=== PATIENT | female | born 1985 | race African-American/Black ===

== ENCOUNTER 2016-09-16 14:56 | Emergency (ER) | payer SELFPAY ==
[~2016-09-16] VITALS: Ht 170.2 cm; Wt 72.6 kg
[2016-09-16 17:01] VITALS: BP 157/75
[2016-09-16] MEDS ORDERED: HYDROCODONE/APAP 5/325MG TABLET. PO ONE (17:15)
[2016-09-16 17:20] LABS: NEG OBC UR NEG; POS OBC UR POS
[2016-09-16 17:21] LABS: BILIRUBIN,URINE NEGATIVE (NEG); GLUCOSE,URINE NEGATIVE (NEG); NITRITE,URINE NEGATIVE (NEG); PH,URINE 5.5; PROTEIN,URINE 100 mg/dL (NEG-TRACE); UROBILINOGEN,URINE 0.2 mg/dL (0.2 mg/dL)
[2016-09-16 17:26] LABS: BASO % 0 % (0-3); EOS % 0 % (0-3); HEMATOCRIT 35.2 % (36.0-47.0); HEMOGLOBIN 11.6 g/dL (12.0-15.5); LYMPH # 1.1 x10^3/uL (1.0-4.8); LYMPH % 13 % (24-48); MEAN CORPUSCULAR HEMOGLOBIN 28 pg (25-35); MEAN CORPUSCULAR HGB CONC 33 g/dL (31-37); MEAN CORPUSCULAR VOLUME 85 fL (79-100); MONO % 3 % (0-9); NEUT % 84 % (31-73); PLATELET COUNT 295 x10^3/uL (140-400); RED BLOOD COUNT 4.15 x10^6/uL (3.50-5.40); WHITE BLOOD COUNT 8.8 x10^3/uL (4.0-11.0)
[2016-09-16 17:28] LABS: BACTERIA,URINE MODERATE /HPF (0-FEW); SQUAMOUS EPITHELIAL CELL,UR MANY /LPF
[2016-09-16 17:37] LABS: CALCIUM 8.8 mg/dL (8.5-10.1); CREATININE 0.8 mg/dL (0.6-1.0); GFR 101.2; POTASSIUM 3.7 mmol/L (3.5-5.1)
[2016-09-16 17:42] LABS: ALBUMIN 3.7 g/dL (3.4-5.0); DIRECT BILIRUBIN 0.2 mg/dL (0.0-0.2); TOTAL BILIRUBIN 0.8 mg/dL (0.2-1.0); TOTAL PROTEIN 7.8 g/dL (6.4-8.2)
--- NOTE | 2016-09-16 18:27 | RAD ---
PROCEDURE First trimester OB ultrasound. HISTORY Vaginal bleeding. TECHNIQUE Transabdominal imaging was performed for initial evaluation of the pelvis. Endovaginal imaging was performed for optimal characterization of the endometrium and to increase sensitivity for detection of intrauterine . COMPARISON None this . FINDINGS Transabdominal imaging: Uterus measures 8.5 centimeters in length. No intrauterine is identified. The right ovary measures 6.4 x 3.6 x 4.0 centimeters and demonstrates dominant corpus luteum cyst measuring 4.0 centimeters. Left ovary measures 4.4 x 2.1 x 2.8 centimeters and demonstrates a few follicles. Both ovaries demonstrate normal vascular flow upon Doppler interrogation and are without evidence of torsion. No adnexal masses are seen. Endovaginal imaging: Uterus measures 9.3 centimeters in length. Endometrial thickness is 3 millimeters, within normal limits. Several nabothian cysts are seen. No intrauterine is identified. Right ovary measures 4.9 x 4.3 x 4.3 centimeters and demonstrates 4.4 centimeter corpus luteum cyst. Left ovary measures 3.5 x 3.2 x 3.8 centimeters and demonstrates a few physiologic follicles. Both ovaries are without evidence of torsion. No adnexal masses are seen. IMPRESSION Intrauterine is identified. No adnexal masses are seen. Most likely etiology is exceedingly early intrauterine . Ectopic is not excluded, however. Serial beta HCG levels and pelvic ultrasound could be performed as clinically indicated. Electronically signed by: Ventura Marcelino MD (Sep 16, 2016 18:26:03)
[2016-09-16] MEDS ORDERED: CEPH-264 PO (19:09)
--- NOTE | 2016-09-16 19:10 | PHYS DOC ---
Past Medical History Past Medical History: Ectopic Additional Past Medical Histor: Ectopic . Past Surgical History: Other Additional Past Surgical Histo: L)tube removed post Ectopic. Alcohol Use: None Drug Use: None Adult General Chief Complaint Chief Complaint: ABDOMINAL PAIN HPI HPI 30-year-old female presenting to the emergency department with suprapubic abdominal pain she describes it as cramping nonradiating sharp intermittent and about 6 out of 10. She has also had vaginal bleeding. This started today. Otherwise she denies chest pain or shortness of breath. She does have a history of ectopic in the past. Review of Systems Review of Systems ROS negative for chest pain shortness of breath nausea vomiting. Positive for abdominal pain and vaginal bleeding. All other review of systems is negative unless otherwise noted in history of present illness. Current Medications Current Medications Current Medications Medications (Trade) Dose Ordered Sig/Cristy Start Time Stop Time Status Last Admin Dose Admin Acetaminophen/ Hydrocodone Bitart (Lortab 5/325) 2 tab 1X ONCE 09/16/16 17:15 09/16/16 17:16 DC 09/16/16 18:22 2 TAB Allergies Allergies Allergies Coded Allergies Type Severity Reaction Last Updated Verified No Known Drug Allergies 11/24/15 No Physical Exam Physical Exam Constitutional: Well developed, well nourished, no acute distress, non-toxic appearance. During my initial examination the patient's pain is mild and getting better. HENT: Normocephalic, atraumatic, bilateral external ears normal, oropharynx moist, no oral exudates, nose normal. [] Eyes: PERRLA, EOMI, conjunctiva normal, no discharge. Neck: Normal range of motion, no tenderness, supple, no stridor. [] Cardiovascular:Heart rate regular rhythm, no murmur Lungs & Thorax: Bilateral breath sounds clear to auscultation [] Abdomen: Soft nontender abdomen without rebound tenderness or guarding present. Negative McBurneys point. Negative Trejo sign. No ecchymosis present. Skin: Warm, dry, no erythema, no rash. Back: No tenderness, no CVA tenderness. [] Extremities: No tenderness, no cyanosis, no clubbing, ROM intact, no edema. [] Neurologic: Alert and oriented X 3, normal motor function, normal sensory function, no focal deficits noted. Psychologic: Affect normal, judgement normal, mood normal. [] Current Patient Data Vital Signs Vital Signs Date Time Temp Pulse Resp B/P Pulse Ox O2 Delivery O2 Flow Rate FiO2 09/16/16 18:00 84 18 100 Room Air 09/16/16 17:01 98.1 157/75 98.1 Lab Values Laboratory Tests Test 09/16/16 16:55 09/16/16 17:22 Urine Collection Type Unknown Urine Color Red Urine Clarity Turbid Urine pH 5.5 Urine Specific [place] >=1.030 Urine Protein 100mg/dL (NEG-TRACE) Urine Glucose (UA) Negativemg/dL (NEG) Urine Ketones (Stick) >=80mg/dL (NEG) Urine Blood Large (NEG) Urine Nitrite Negative (NEG) Urine Bilirubin Negative (NEG) Urine Urobilinogen Dipstick 0.2mg/dL (0.2 mg/dL) Urine Leukocyte Esterase Small (NEG) Urine RBC 6-10/HPF (0-2) Urine WBC 5-10/HPF (0-4) Urine Squamous Epithelial Cells Many/LPF Urine Amorphous Sediment Present/HPF Urine Bacteria Moderate/HPF (0-FEW) Urine Mucus Marked/LPF Urine Test Positive (NEG) White Blood Count 8.8x10^3/uL (4.0-11.0) Red Blood Count 4.15x10^6/uL (3.50-5.40) Hemoglobin 11.6g/dL (12.0-15.5) L Hematocrit 35.2% (36.0-47.0) L Mean Corpuscular Volume 85fL (79-100) Mean Corpuscular Hemoglobin 28pg (25-35) Mean Corpuscular Hemoglobin Concent 33g/dL (31-37) Red Cell Distribution Width 14.0% (11.5-14.5) Platelet Count 295x10^3/uL (140-400) Neutrophils (%) (Auto) 84% (31-73) H Lymphocytes (%) (Auto) 13% (24-48) L Monocytes (%) (Auto) 3% (0-9) Eosinophils (%) (Auto) 0% (0-3) Basophils (%) (Auto) 0% (0-3) Neutrophils # (Auto) 7.3x10^3uL (1.8-7.7) Lymphocytes # (Auto) 1.1x10^3/uL (1.0-4.8) Monocytes # (Auto) 0.3x10^3/uL (0.0-1.1) Eosinophils # (Auto) 0.0x10^3/uL (0.0-0.7) Basophils # (Auto) 0.0x10^3/uL (0.0-0.2) Maternal Serum HCG Beta Subunit 796mIU/mL (0-6) H Sodium Level 136mmol/L (136-145) Potassium Level 3.7mmol/L (3.5-5.1) Chloride Level 103mmol/L (98-107) Carbon Dioxide Level 21mmol/L (21-32) Anion Gap 12 (6-14) Blood Urea Nitrogen 12mg/dL (7-20) Creatinine 0.8mg/dL (0.6-1.0) Estimated GFR (Cockcroft-Gault) 101.2 Glucose Level 95mg/dL (70-99) Calcium Level 8.8mg/dL (8.5-10.1) Total Bilirubin 0.8mg/dL (0.2-1.0) Direct Bilirubin 0.2mg/dL (0.0-0.2) Aspartate Amino Transferase (AST) 19U/L (15-37) Alanine Aminotransferase (ALT) 19U/L (14-59) Alkaline Phosphatase 60U/L (46-116) Total Protein 7.8g/dL (6.4-8.2) Albumin 3.7g/dL (3.4-5.0) Lipase 86U/L (73-393) Laboratory Tests 09/16/16 17:22 Laboratory Tests 09/16/16 17:22 EKG EKG [] Radiology/Procedures Radiology/Procedures [facility] [address] [place] [address] IMAGING REPORT Signed PATIENT: NANCY JEFF ACCOUNT: [id number] : 1985 LOCATION: ER AGE: 30 SEX: F EXAM STATUS: REG ER ORD. PHYSICIAN: INGRIS HAYDEN MD REASON: PREG WITH VAGINAL BLEEDING PROCEDURE: PREG 1ST TRIMESTER PROCEDURE First trimester OB ultrasound. HISTORY Vaginal bleeding. TECHNIQUE Transabdominal imaging was performed for initial evaluation of the pelvis. Endovaginal imaging was performed for optimal characterization of the endometrium and to increase sensitivity for detection of intrauterine . COMPARISON None this . FINDINGS Transabdominal imaging: Uterus measures 8.5 centimeters in length. No intrauterine is identified. The right ovary measures 6.4 x 3.6 x 4.0 centimeters and demonstrates dominant corpus luteum cyst measuring 4.0 centimeters. Left ovary measures 4.4 x 2.1 x 2.8 centimeters and demonstrates a few follicles. Both ovaries demonstrate normal vascular flow upon Doppler interrogation and are without evidence of torsion. No adnexal masses are seen. Endovaginal imaging: Uterus measures 9.3 centimeters in length. Endometrial thickness is 3 millimeters, within normal limits. Several nabothian cysts are seen. No intrauterine is identified. Right ovary measures 4.9 x 4.3 x 4.3 centimeters and demonstrates 4.4 centimeter corpus luteum cyst. Left ovary measures 3.5 x 3.2 x 3.8 centimeters and demonstrates a few physiologic follicles. Both ovaries are without evidence of torsion. No adnexal masses are seen. IMPRESSION Intrauterine is identified. No adnexal masses are seen. Most likely etiology is exceedingly early intrauterine . Ectopic is not excluded, however. Serial beta HCG levels and pelvic ultrasound could be performed as clinically indicated. Electronically signed by: Ventura Wagoner MD (Sep 16, 2016 18:26:03) DICTATED and SIGNED BY: VENTURA WAGONER MD DATE: 09/16/16 1826 CC: INGRIS HAYDEN MD; NO PCP ~ [] Course & Med Decision Making Course & Med Decision Making Pertinent Labs and Imaging studies reviewed. (See chart for details) [] 30-year-old female presenting to the emergency department with abdominal pain and vaginal bleeding. Positive test in the emergency department. On examination the patient's vital signs showed mild hypertension otherwise unremarkable. Physical exam showed nontender abdomen. The patient's pain improved during my initial history and physical. Blood work sent ultrasound ordered. Blood work showed normal CBC with a mild anemia. Urinalysis showed dehydration with mild ketones with bacteria in the urine. Chemistry panel unremarkable. Beta hCG level was 796. Rh+. Ultrasound was unable to rule out ectopic . The patient was reevaluated. Her abdomen continued to be soft and nontender. She reported her pain improving after medications given. She was subsequently discharged home to follow-up with obstetrics in 3 days for serial hCG monitoring and repeat ultrasound per OB discretion. If she was unable to get into the obstetrics office she was to return to the emergency department 3 days for repeat hCG. Dragon Disclaimer Dragon Disclaimer This electronic medical record was generated, in whole or in part, using a voice recognition dictation system. Departure Departure Impression: Primary Impression: Vaginal bleeding in Additional Impression: Asymptomatic bacteriuria during Disposition: HOME, SELF-CARE Admitting Physician: Other Condition: STABLE Referrals: NO PCP (PCP) SUZANNE DUBON MD Patient Instructions: ABCs of , Vaginal Bleeding During , First Trimester Additional Instructions: Thank you for allowing us to participate in your care today. Followup with Dr. Dubon in 3 days for repeat testing. If you do not have a primary care provider you can ask for a list of our primary care providers. Return to the emergency department you have any new or concerning findings. This should be evaluated by the primary care physician and any necessary consulting services for continued management within a few days after discharge. Return to emergency room if you have any new or concerning symptoms including but not limited to fever, chills, nausea, vomiting, intractable pain, any new rashes, chest pain, shortness of air, uncontrolled bleeding, difficulty breathing, and/or vision loss. You may have been prescribed medication that can change in your level of thinking and ability to operate machinery. These medications include hydrocodone and Ativan. Also, Benadryl has been known to do this as well. Be sure to check with your pharmacist and ask if the medications you've prescribed can affect your level of consciousness. I recommend not operating heavy machinery or driving while on medication such as these. Scripts Cephalexin (Keflex)500 Mg Capsule1 Cap PO BID #14 CAP Prov:INGRIS HAYDEN MD 09/16/16 Problem Qualifiers INGRIS HAYDEN MD Sep 16, 2016 19:10
--- NOTE | 2016-09-19 16:26 | VNOTE ---
CALL BACK NOTE CALL BACK Microbiology 09/16/16 Urine Culture - Final, Complete 09/16/16 Urine Culture Result 1 (MIGUEL) - Final, Complete 09/16/16 Urine Culture Result 2 (MIGUEL) - Final, Complete Patient was notified in regards of Group B strep she has an appointment with Dr Dubon tomorrow in which she will provide him with this information. HONORIO CHOU NP Sep 19, 2016 16:25
== END 2016-09-16 19:37 | disposition home or self-care (01) ==
LOC: ER 14:56
DX: Z33.1 Pregnant state, incidental (principal); N93.9 Abnormal uterine and vaginal bleeding, unspecified; R82.71 Bacteriuria; R10.9 Unspecified abdominal pain; I10 Essential (primary) hypertension; E86.0 Dehydration; D64.9 Anemia, unspecified
CPT/HCPCS: 36415; 76801; 80048; 80076; 81001; 81025; 83690; 84702; 85027; 86901; 87086; 99285-25

== ENCOUNTER 2019-08-17 12:56 | Emergency (ER) | payer OTHER ==
[~2019-08-17] VITALS: Ht 172.7 cm; Wt 72.6 kg
[~2019-08-17 12:56] MED LIST: CEPH-264 PO
[2019-08-17] MEDS ORDERED: ONDANSETRON ODT 4 MG TAB.RAPDIS. PO STA (14:06)
[2019-08-17] MEDS ORDERED: DICYCLOMINE HCL 10 MG CAPSULE PO STA (14:06)
[2019-08-17] MEDS ORDERED: ONDA4TAB12 PO (14:14)
[2019-08-17] MEDS ORDERED: DICY10CA3 PO (14:14)
--- NOTE | 2019-08-17 14:14 | PHYS DOC ---
Past Medical History Past Medical History: Ectopic Additional Past Medical Histor: Ectopic . Past Surgical History: Other Additional Past Surgical Histo: L)tube removed post Ectopic. Alcohol Use: None Drug Use: None Adult General Chief Complaint Chief Complaint: DIARRHEA HPI HPI Patient is a 33 year old year female who presents with abdominal cramping, and diarrhea this been ongoing since this morning. The patient rates her pain as 8 out of 10 in severity. States that she feels mildly nauseous as well. Denies fever, denies any other complaints. Review of Systems Review of Systems Constitutional: Denies fever or chills [] Eyes: Denies change in visual acuity, redness, or eye pain [] HENT: Denies nasal congestion or sore throat [] Respiratory: Denies cough or shortness of breath [] Cardiovascular: No additional information not addressed in HPI [] GI: Reports abdominal cramping, nausea, and diarrhea [] : Denies dysuria or hematuria [] Musculoskeletal: Denies back pain or joint pain [] Integument: Denies rash or skin lesions [] Neurologic: Denies headache, focal weakness or sensory changes [] Endocrine: Denies polyuria or polydipsia [] Complete systems were reviewed and found to be within normal limits, except as documented in this note. Current Medications Current Medications Current Medications Medications (Trade) Dose Ordered Sig/[facility] Start Time Stop Time Status Last Admin Dose Admin Dicyclomine HCl (Bentyl) 10 mg 1X STAT 08/17/19 14:06 08/17/19 14:08 DC 08/17/19 14:11 10 MG Ondansetron HCl (Zofran Odt) 4 mg 1X STAT 08/17/19 14:06 08/17/19 14:08 DC 08/17/19 14:11 4 MG Allergies Allergies Allergies Coded Allergies Type Severity Reaction Last Updated Verified No Known Drug Allergies 11/24/15 No Physical Exam Physical Exam Constitutional: Well developed, well nourished, no acute distress, non-toxic appearance. [] HENT: Normocephalic, atraumatic, bilateral external ears normal, oropharynx moist, no oral exudates, nose normal. [] Eyes: PERRLA, EOMI, conjunctiva normal, no discharge. [] Neck: Normal range of motion, no tenderness, supple, no stridor. [] Cardiovascular:Heart rate regular rhythm, no murmur [] Lungs & Thorax: Bilateral breath sounds clear to auscultation [] Abdomen: Bowel sounds normal, soft, diffuse tenderness localized to the LLQ, no masses, no pulsatile masses. [] Skin: Warm, dry, no erythema, no rash. [] Neurologic: Alert and oriented X 3, normal motor function, normal sensory function, no focal deficits noted. [] Psychologic: Affect normal, judgement normal, mood normal. [] Current Patient Data Vital Signs Vital Signs Date Time Temp Pulse Resp B/P (MAP) Pulse Ox O2 Delivery O2 Flow Rate FiO2 08/17/19 13:10 98.3 70 16 147/69 (95) 100 Room Air 98.3 Lab Values Laboratory Tests Test 08/17/19 14:19 08/17/19 15:20 Urine Collection Type Unknown Urine Color Yellow Urine Clarity Turbid Urine pH 7.0 Urine Specific [place] 1.025 Urine Protein Negative mg/dL (NEG-TRACE) Urine Glucose (UA) Negative mg/dL (NEG) Urine Ketones (Stick) Negative mg/dL (NEG) Urine Blood Small (NEG) Urine Nitrite Negative (NEG) Urine Bilirubin Negative (NEG) Urine Urobilinogen Dipstick 0.2 mg/dL (0.2 mg/dL) Urine Leukocyte Esterase Negative (NEG) Urine RBC 0 /HPF (0-2) Urine WBC Occ /HPF (0-4) Urine Squamous Epithelial Cells Many /LPF Urine Bacteria Few /HPF (0-FEW) Urine Mucus Marked /LPF POC Urine HCG, Qualitative Hcg positive (Negative) White Blood Count 4.9 x10^3/uL (4.0-11.0) Red Blood Count 4.04 x10^6/uL (3.50-5.40) Hemoglobin 11.4 g/dL (12.0-15.5) L Hematocrit 35.0 % (36.0-47.0) L Mean Corpuscular Volume 87 fL (79-100) Mean Corpuscular Hemoglobin 28 pg (25-35) Mean Corpuscular Hemoglobin Concent 33 g/dL (31-37) Red Cell Distribution Width 13.9 % (11.5-14.5) Platelet Count 287 x10^3/uL (140-400) Neutrophils (%) (Auto) 48 % (31-73) Lymphocytes (%) (Auto) 45 % (24-48) Monocytes (%) (Auto) 5 % (0-9) Eosinophils (%) (Auto) 1 % (0-3) Basophils (%) (Auto) 1 % (0-3) Neutrophils # (Auto) 2.4 x10^3/uL (1.8-7.7) Lymphocytes # (Auto) 2.2 x10^3/uL (1.0-4.8) Monocytes # (Auto) 0.3 x10^3/uL (0.0-1.1) Eosinophils # (Auto) 0.0 x10^3/uL (0.0-0.7) Basophils # (Auto) 0.0 x10^3/uL (0.0-0.2) Maternal Serum HCG Beta Subunit 487 mIU/mL (0-5) H Sodium Level 139 mmol/L (136-145) Potassium Level 3.7 mmol/L (3.5-5.1) Chloride Level 103 mmol/L (98-107) Carbon Dioxide Level 27 mmol/L (21-32) Anion Gap 9 (6-14) Blood Urea Nitrogen 12 mg/dL (7-20) Creatinine 0.7 mg/dL (0.6-1.0) Estimated GFR (Cockcroft-Gault) 115.9 BUN/Creatinine Ratio 17 (6-20) Glucose Level 94 mg/dL (70-99) Calcium Level 8.4 mg/dL (8.5-10.1) L Total Bilirubin 0.4 mg/dL (0.2-1.0) Aspartate Amino Transferase (AST) 15 U/L (15-37) Alanine Aminotransferase (ALT) 15 U/L (14-59) Alkaline Phosphatase 61 U/L (46-116) Total Protein 7.4 g/dL (6.4-8.2) Albumin 3.5 g/dL (3.4-5.0) Albumin/Globulin Ratio 0.9 (1.0-1.7) L Laboratory Tests 08/17/19 15:20 Laboratory Tests 08/17/19 15:20 EKG EKG [] Radiology/Procedures Radiology/Procedures [][facility] [address] [place] [address] IMAGING REPORT Signed PATIENT: NANCY JEFF MACCOUNT: [id number] : 1985 LOCATION: ER AGE: 33 SEX: F EXAM STATUS: REG ER ORD. PHYSICIAN: DIEGO BENZ APRN REASON: left lower abd pain, + preg PROCEDURE: OB <14 WKS W/TV Examination: Obstetric ultrasound less than 14 weeks HISTORY: History of left lower quadrant abdominal pain COMPARISON: 09/16/2016 FINDINGS: The uterus measures 9.7 x 5.1 x 4.3 cm. Small amount of simple fluid identified in the cul-de-sac.The right ovary measures 2.8 x 2.2 x 1.5 cm. The left ovary measures 2.6 x 2.1 x 1.5 cm. Blood flow identified in the right and left ovaries. Small amount of fluid identified in the endometrium. Tiny cystic structures identified in the cervix. There is a somewhat hyperechoic structure identified within the uterus in the left ovary without significant vascular flow within. IMPRESSION: 1. No evidence of intrauterine gestational sac identified. Differential includes very early , failed first trimester or ectopic .. There is a hyperechogenicity between the uterus and the left ovary without vascular flow within nonspecific could be somewhat hyperechoic fallopian tube or nondistended bowel. Correlate clinically. Close interval follow-up examination and follow-up beta-hCG levels is recommended. 2. Cystic structures identified in the cervix probably nabothian cysts. 3. Minimal fluid identified in the endometrium could be blood or endometrial fluid. Electronically signed by: Marcus Tee MD (08/17/2019 3:33 PM) [facility] DICTATED and SIGNED BY: MARCUS TEE MD DATE: 08/17/19 1533 Course & Med Decision Making Course & Med Decision Making Pertinent Labs and Imaging studies reviewed. (See chart for details) Will give patient Bentyl and Zofran in ER. Will prescribe to go home. Discussed with patient that this is likely viral in nature. Discussed that if she is unable to keep fluids down, or the abdominal cramping does not improve to return to ER. Patient is agreeable to this plan. HCG is positive. Will get ultrasound. After discussing with patient. The patient states that she did have some vaginal bleeding this morning. Ultrasound show possible ectopic . Will page Dr. Salter to discuss case ([id number]). HCG is 487. Labs are otherwise unremarkable. Discussed with Dr. Salter who will see on Monday. Patrice Disclaimer Patrice Disclaimer This electronic medical record was generated, in whole or in part, using a voice recognition dictation system. Departure Departure Impression: Primary Impression: Diarrhea Additional Impressions: Vaginal bleeding in Abdominal pain during Hx of ectopic Disposition: HOME, SELF-CARE Condition: STABLE Referrals: NO PCP (PCP) JESUS ALBERTO SALTER Jr, MD Patient Instructions: Viral Gastroenteritis Additional Instructions: Thank you for visiting [facility]. We appreciate you trusting us with your care. If any additional problems come up don't hesitate to return to visit us. Please follow up with your primary care provider so they can plan additional care if needed and know about the problem that you had. If symptoms worsen come back to the Emergency Department. Any concerning symptoms that start such as chest pain, shortness of air, weakness or numbness on one side of the body, running high fevers or any other concerning symptoms return to the ER. Please fill your medications at any pharmacy and follow the prescription instructions. Please return to the emergency department if you are unable to keep fluids down or your pain gets worse or you start having large amounts of vaginal bleeding. Please follow up with GREIGE MENDER on Monday for redraw of HCG. Scripts Ondansetron (ONDANSETRON ODT) 4 Mg Tab.rapdis 1 TAB PO PRN Q6-8HRS PRN for NAUSEA, #16 TAB Prov: DIEGO BENZ APRN 08/17/19 Dicyclomine Hcl (DICYCLOMINE HCL) 10 Mg Capsule 1 CAP PO PRN Q6HRS PRN for PAIN, #20 CAP 0 Refills Prov: DIEGO BENZ APRN 08/17/19 Problem Qualifiers Primary Impression: Diarrhea Diarrhea type: unspecified type Qualified Codes: R19.7 - Diarrhea, unspecified Additional Impressions: Abdominal pain during Trimester: unspecified trimester Qualified Codes: O26.899 - Other specified related conditions, unspecified trimester; R10.9 - Unspecified abdominal pain DIEGO BENZ APRN Aug 17, 2019 14:14
[2019-08-17 15:32] LABS: BASO % 1 % (0-3); EOS % 1 % (0-3); HEMOGLOBIN 11.4 g/dL (12.0-15.5); LYMPH # 2.2 x10^3/uL (1.0-4.8); LYMPH % 45 % (24-48); MEAN CORPUSCULAR HEMOGLOBIN 28 pg (25-35); MEAN CORPUSCULAR HGB CONC 33 g/dL (31-37); MEAN CORPUSCULAR VOLUME 87 fL (79-100); MONO # 0.3 x10^3/uL (0.0-1.1); MONO % 5 % (0-9); NEUT # 2.4 x10^3/uL (1.8-7.7); NEUT % 48 % (31-73); PLATELET COUNT 287 x10^3/uL (140-400); RED BLOOD COUNT 4.04 x10^6/uL (3.50-5.40); RED CELL DISTRIBUTION WIDTH 13.9 % (11.5-14.5); WHITE BLOOD COUNT 4.9 x10^3/uL (4.0-11.0)
--- NOTE | 2019-08-17 15:36 | RAD ---
Examination: Obstetric ultrasound less than 14 weeks HISTORY: History of left lower quadrant abdominal pain COMPARISON: 09/16/2016 FINDINGS: The uterus measures 9.7 x 5.1 x 4.3 cm. Small amount of simple fluid identified in the cul-de-sac.The right ovary measures 2.8 x 2.2 x 1.5 cm. The left ovary measures 2.6 x 2.1 x 1.5 cm. Blood flow identified in the right and left ovaries. Small amount of fluid identified in the endometrium. Tiny cystic structures identified in the cervix. There is a somewhat hyperechoic structure identified within the uterus in the left ovary without significant vascular flow within. IMPRESSION: 1. No evidence of intrauterine gestational sac identified. Differential includes very early , failed first trimester or ectopic .. There is a hyperechogenicity between the uterus and the left ovary without vascular flow within nonspecific could be somewhat hyperechoic fallopian tube or nondistended bowel. Correlate clinically. Close interval follow-up examination and follow-up beta-hCG levels is recommended. 2. Cystic structures identified in the cervix probably nabothian cysts. 3. Minimal fluid identified in the endometrium could be blood or endometrial fluid. Electronically signed by: Marcus Tee MD (08/17/2019 3:33 PM) [facility]
[2019-08-17 15:43] LABS: CALCIUM 8.4 mg/dL (8.5-10.1); CREATININE 0.7 mg/dL (0.6-1.0); GFR 115.9; POTASSIUM 3.7 mmol/L (3.5-5.1)
[2019-08-17 15:49] LABS: ALBUMIN 3.5 g/dL (3.4-5.0); ALBUMIN/GLOBULIN RATIO 0.9 (1.0-1.7); TOTAL BILIRUBIN 0.4 mg/dL (0.2-1.0); TOTAL PROTEIN 7.4 g/dL (6.4-8.2)
[2019-08-17 16:10] LABS: BILIRUBIN,URINE NEGATIVE (NEG); CLARITY,URINE TURBID; COLOR,URINE YELLOW; NITRITE,URINE NEGATIVE (NEG); PROTEIN,URINE NEGATIVE (NEG-TRACE); UROBILINOGEN,URINE 0.2 mg/dL (0.2 mg/dL)
[2019-08-17 16:22] LABS: RBC,URINE 0 /HPF (0-2); SQUAMOUS EPITHELIAL CELL,UR MANY /LPF
[2019-08-17 16:23] LABS: BACTERIA,URINE FEW /HPF (0-FEW); WBC,URINE OCC /HPF (0-4)
[2019-08-17 17:01] VITALS: BP 143/78
== END 2019-08-17 17:04 | disposition home or self-care (01) ==
LOC: ER 12:56
DX: O46.91 Antepartum hemorrhage, unspecified, first trimester (principal); R10.32 Left lower quadrant pain; R10.84 Generalized abdominal pain; R19.7 Diarrhea, unspecified; Z3A.00 Weeks of gestation of pregnancy not specified
CPT/HCPCS: 36415; 76801; 76817; 80053; 81001; 81025; 84702; 85025; 99285; Q0162

== ENCOUNTER 2020-08-11 13:54 | Emergency (ER) | payer MEDICAID, OTHER ==
[~2020-08-11] VITALS: Ht 172.7 cm; Wt 72.7 kg
[~2020-08-11 13:54] MED LIST changes: +DICY10CA3 PO; +ONDA4TAB12 PO
[2020-08-11] MEDS ORDERED: LIDOCAINE 1%/EPI 1:100,000 20 ML VIAL. SQ ONE (14:45)
--- NOTE | 2020-08-11 15:42 | ED.ADGEN ---
Past Medical History Past Medical History: Ectopic Additional Past Medical Histor: Ectopic . Past Surgical History: Other Additional Past Surgical Histo: L)tube removed post Ectopic. Smoking Status: Never Smoker Alcohol Use: None Drug Use: None General Adult EDM: Chief Complaint: LACERATION/AVULSION HPI: HPI: Patient is a 34 year old AA female who presents emergency department with complaints of a laceration above her right eyebrow. Patient states she accidentally slipped on some water and hit her head on a a corner of a wall at home. She denies any loss of consciousness, neck pain, nausea, vomiting, vision changes, headache. Patient states she is unsure when her last tetanus immunization was. She currently rates her pain a 5 out of 10 on pain scale, she denies any alleviating or exacerbating factors. Review of Systems: Review of Systems: Complete ROS is negative unless otherwise noted in HPI. Current Medications: Current Medications Medications (Trade) Dose Ordered Sig/Cristy Start Time Stop Time Status Last Admin Dose Admin Diphtheria/ Tetanus/Acell Pertussis (ADACEL TDap SYRINGE) 0.5 ml ONCE ONCE 08/11/20 15:45 08/11/20 15:46 DC 08/11/20 15:49 0.5 ML Lidocaine/ Epinephrine (LIDOCAINE 1%-EPI 1:100,000 Multi-Dose) 20 ml 1X ONCE 08/11/20 14:45 08/11/20 14:46 DC 08/11/20 14:46 20 ML Allergies: Allergies: Allergies Coded Allergies Type Severity Reaction Last Updated Verified No Known Drug Allergies 11/24/15 No Physical Exam: PE: See Above Constitutional: Well developed, well nourished, no acute distress, non-toxic appearance. [] HENT: Normocephalic, atraumatic, bilateral external ears normal, nose normal. [] Eyes: PERRLA, EOMI, conjunctiva normal, no discharge. [] Neck: Normal range of motion, no stridor. [] Cardiovascular:Heart rate regular rhythm Lungs & Thorax: Respirations even and unlabored, no retractions, no respiratory distress Skin: Warm, dry, no erythema, no rash; 2 cm vertical laceration to the lateral right eyebrow, no visible foreign body, no active bleeding. [] Extremities: No cyanosis, ROM intact, no edema. [] Neurologic: Alert and oriented X 3, no focal deficits noted. [] Psychologic: Affect normal, judgement normal, mood normal. [] Current Patient Data: Vital Signs: Vital Signs Date Time Temp Pulse Resp B/P (MAP) Pulse Ox O2 Delivery O2 Flow Rate FiO2 08/11/ 15:50 98.0 66 20 119/67 (84) 100 Room Air 98.0 EKG: EKG: [] Heart Score: Risk Factors: Risk Factors: DM, Current or recent (<one month) smoker, HTN, HLP, family history of CAD, obesity. Risk Scores: Score 0 - 3: 2.5% MACE over next 6 weeks - Discharge Home Score 4 - 6: 20.3% MACE over next 6 weeks - Admit for Clinical Observation Score 7 - 10: 72.7% MACE over next 6 weeks - Early Invasive Strategies Radiology/Procedures: Radiology/Procedures: Laceration Repair by me: Anesthesia: 1% with epi lidocaine locally Location: Right eyebrow Tendon/Joint/Nerves: No injury Foreign body: None detected after copious irrigation and exploration with NS and chlorhexidine Technique: 4 Simple Interrupted Sutures with Prolene Complexity: No subcutaneous sutures/mucosal repair/edge excision Post Closure Length: 2 cm Patient's bleeding was easily controlled in the department and there is no indication of anemia. No evidence of compartment syndrome, neurologic injury, vascular injury, open joint, tendon laceration, or foreign body. Patient is appropriate for outpatient follow up. Scar minimization instructions given. [] Course & Med Decision Making: Course & Med Decision Making Pertinent Labs and Imaging studies reviewed. (See chart for details) [] Dragon Disclaimer: Dragon Disclaimer: This electronic medical record was generated, in whole or in part, using a voice recognition dictation system. Departure Departure Impression: Primary Impression: Laceration of eyebrow, right Additional Impression: Need for Tdap vaccination Disposition: 01 DC HOME SELF CARE/HOMELESS Condition: STABLE Referrals: NO PCP (PCP) Patient Instructions: Facial Laceration, [id number], VIS, Tetanus, Diphtheria (Td); Tetanus, Diphtheria, Pertussis (Tdap) - CDC Additional Instructions: Keep the area clean and dry. You may take Tylenol or ibuprofen as needed for pain. Keep the dressing that was placed today on for 24 hours then change the dressing twice a day. Follow-up with your primary care doctor, or return to the emergency room in 5-7 days to have the sutures removed, sooner if you develop signs of infection including: redness, warmth, drainage, or a fever. 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 I was available for consultation as needed during the patient's visit in the emergency department. I agree with the clinical impression, plan, and disposition. Problem Qualifiers Primary Impression: Laceration of eyebrow, right Encounter type: initial encounter Qualified Codes: S01.111A - Laceration without foreign body of right eyelid and periocular area, initial encounter HONG CRUZ APRN Aug 11, 2020 15:42 MCKENNADIEGO DO Aug 11, 2020 17:51
[2020-08-11] MEDS ORDERED: DIPH,PERTUSS(ACELL),TET VAC/PF 0.5 ML SYRINGE. VAX IM ONE (15:45)
[2020-08-11 15:50] VITALS: BP 119/67
== END 2020-08-11 15:56 | disposition home or self-care (01) ==
LOC: ER 13:54
DX: S01.111A Laceration without foreign body of right eyelid and periocular area, initial encounter (principal); W01.198A Fall on same level from slipping, tripping and stumbling with subsequent striking against other object, initial encounter; Y93.89 Activity, other specified; Y92.098 Other place in other non-institutional residence as the place of occurrence of the external cause; Y99.8 Other external cause status
CPT/HCPCS: 12011; 90471; 90715; 99283; J3490

== ENCOUNTER 2020-08-30 14:27 | Emergency (ER) | payer MEDICAID ==
[~2020-08-30] VITALS: Ht 175.3 cm; Wt 160.0 kg
[2020-08-30 15:25] VITALS: BP 144/93
--- NOTE | 2020-08-30 15:33 | ED.ADGEN ---
Past Medical History Past Medical History: Ectopic Additional Past Medical Histor: Ectopic . Past Surgical History: Other Additional Past Surgical Histo: L)tube removed post Ectopic. Smoking Status: Never Smoker Alcohol Use: None Drug Use: None General Adult EDM: Chief Complaint: SUTURE/STAPLE REMOVAL HPI: HPI: Patient is a 34 year old AA female who presents to the emergency department for suture removal. Patient was seen here on August 11, 2020 and had 4 sutures placed in her right eyebrow. She states that before that healed she fell and hit it and it started bleeding again so she waited until today to come in. Patient denies any erythema, purulent drainage, warmth, or bleeding from the at this time. She denies any recent fever. The patient currently denies any pain.625Nollid! Review of Systems: Review of Systems: Complete ROS is negative unless otherwise noted in HPI. Allergies: Allergies: Allergies Coded Allergies Type Severity Reaction Last Updated Verified No Known Drug Allergies 11/24/15 No Physical Exam: PE: See Above Constitutional: Well developed, well nourished, no acute distress, non-toxic a ppearance. [] HENT: Normocephalic, atraumatic, bilateral external ears normal, nose normal. [] Eyes: PERRLA, EOMI, conjunctiva normal, no discharge. [] Neck: Normal range of motion, no stridor. [] Cardiovascular:Heart rate regular rhythm Lungs & Thorax: Respirations even and unlabored, no retractions, no respiratory distress Skin: Warm, dry, no erythema, no rash; healed laceration noted to the right eyebrow, wound edges are well approximated, no drainage or surrounding erythema, sutures were removed by RN prior to exam. [] Extremities: No cyanosis, ROM intact, no edema. [] Neurologic: Alert and oriented X 3, no focal deficits noted. [] Psychologic: Affect normal, judgement normal, mood normal. [] Current Patient Data: Vital Signs: Vital Signs Date Time Temp Pulse Resp B/P (MAP) Pulse Ox O2 Delivery O2 Flow Rate FiO2 08/30/20 15:25 98.3 66 16 144/93 (110) 98 Room Air 98.3 EKG: EKG: [] Heart Score: Risk Factors: Risk Factors: DM, Current or recent (<one month) smoker, HTN, HLP, family history of CAD, obesity. Risk Scores: Score 0 - 3: 2.5% MACE over next 6 weeks - Discharge Home Score 4 - 6: 20.3% MACE over next 6 weeks - Admit for Clinical Observation Score 7 - 10: 72.7% MACE over next 6 weeks - Early Invasive Strategies Radiology/Procedures: Radiology/Procedures: [] Course & Med Decision Making: Course & Med Decision Making Pertinent Labs and Imaging studies reviewed. (See chart for details) [] Dragon Disclaimer: Dragon Disclaimer: This electronic medical record was generated, in whole or in part, using a voice recognition dictation system. Departure Departure Impression: Primary Impression: Encounter for removal of sutures Disposition: 01 DC HOME SELF CARE/HOMELESS Condition: STABLE Referrals: NO PCP (PCP) Patient Instructions: Suture Removal-Brief Additional Instructions: Be sure to wear sunblock over the affected area when you are in the sun, vitamin E capsules twice a day as discussed. Follow-up with your primary care doctor as needed, return to the ER if your symptoms worsen. Have a great day, thank you for choosing [facility]! HONG CRUZ APRN Aug 30, 2020 15:33
== END 2020-08-30 15:37 | disposition home or self-care (01) ==
LOC: ER 14:27
DX: S01.111D Laceration without foreign body of right eyelid and periocular area, subsequent encounter (principal); Z98.890 Other specified postprocedural states; X58.XXXD Exposure to other specified factors, subsequent encounter
CPT/HCPCS: 99282

== ENCOUNTER → 2021-11-11 | Outpatient (CLI) | payer MEDICAID ==
--- NOTE | 2021-11-11 16:25 | RAD ---
EXAM: Obstetrics sonogram. HISTORY: viability scan. TECHNIQUE: Transabdominal and transvaginal sonographic imaging of the pelvis was performed. COMPARISON: None. FINDINGS: The uterus measures 12.0 x 7.6 x 7.5 cm. There is a single intrauterine gestational sac wit h pole. The crown-rump length is 2.76 cm, corresponding with a gestational age of 9 weeks and 4 days. There is no cardiac activity. No yolk sac is seen. The right ovary is normal in si ze and demonstrate normal blood flow. There is a 1.8 cm right corpus luteum cyst. The left ovary is o bscured. No left adnexal mass or cyst is seen. IMPRESSION: 1. Single uterine fetus with an estimated gestational age patient also measurements of 9 weeks and 4 days and absent cardiac activity. This is consistent with intrauterine demise. 2. 1.8 cm right corpus luteum cyst. The left ovary is obscured. Electronically signed by: Sapna Ochoa MD (11/11/2021 4:22 PM) [id number]
== END ==
LOC: US 15:37
PROVIDERS: ATTEND Registered Nurse
DX: O36.80X0 Pregnancy with inconclusive fetal viability, not applicable or unspecified (principal); O34.81 Maternal care for other abnormalities of pelvic organs, first trimester; N83.11 Corpus luteum cyst of right ovary; Z3A.09 9 weeks gestation of pregnancy
CPT/HCPCS: 76801; 76817

== ENCOUNTER 2021-11-23 08:37 | Day surgery (SDC) | payer MEDICAID ==
[~2021-11-23] VITALS: Ht 172.7 cm; Wt 76.9 kg
[~2021-11-23 08:37] MED LIST changes: +HYDROmorphone 2 MG/ML INJ. IVP PRN; +IV RINGERS,LACTATED 1000ML 1,000 ML IV SCH; +MORPHINE SULFATE 2 MG/ML INJ. IVP PRN; +PNV1TABL78 PO; +PROCHLORPERAZINE 10 MG/2 ML VIAL. IVP PRN; +fentaNYL PF VIAL 100 MCG/2 ML VIAL IVP PRN
[2021-11-23] MEDS ORDERED: DOXYCYCLINE HYCLATE 100 MG TABLET PO ONE (08:45)
[2021-11-23 09:06] VITALS: BP 136/65
[2021-11-23 09:24] LABS: BASO # 0.1 x10^3/uL (0.0-0.2); BASO % 1 % (0-3); EOS # 0.1 x10^3/uL (0.0-0.7); EOS % 1 % (0-3); HEMATOCRIT 34.6 % (36.0-47.0); HEMOGLOBIN 10.9 g/dL (12.0-15.5); LYMPH # 1.9 x10^3/uL (1.0-4.8); LYMPH % 32 % (24-48); MEAN CORPUSCULAR HEMOGLOBIN 27 pg (25-35); MEAN CORPUSCULAR HGB CONC 32 g/dL (31-37); MEAN CORPUSCULAR VOLUME 86 fL (79-100); MONO # 0.3 x10^3/uL (0.0-1.1); MONO % 5 % (0-9); NEUT # 3.6 x10^3/uL (1.8-7.7); NEUT % 61 % (31-73); PLATELET COUNT 325 x10^3/uL (140-400); RED BLOOD COUNT 4.01 x10^6/uL (3.50-5.40); RED CELL DISTRIBUTION WIDTH 13.8 % (11.5-14.5); WHITE BLOOD COUNT 5.9 x10^3/uL (4.0-11.0)
[2021-11-23] MEDS ORDERED: FAMOTIDINE 20 MG/2 ML VIAL IVP ONE (09:30)
[2021-11-23] MEDS ORDERED: OXYTOCIN 10 UNIT/ML VIAL. ONE ×2 (09:35)
--- NOTE | 2021-11-23 10:09 | PDOC1 ---
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 The pt underwent an u/s on 11/11/21 revealing a fetus measuring 9.4wks with no heartbeat. Explained to the pt that a heartbeat was seen at 6wks. With no heartbeat seen in a fetus measuring 9wks that was definitive for a missed AB. Discussed tx options of expectant, medical and surgical management. With her other two AB she did not require a D&C. She did have an ectopic with her first . She unsure if they removed her tube (but records look like they may have taken her left tube). PMH: Denies PSH: Ectopic - left salpingectomy? Meds: PNV All: NKDA OBHx: 3 X TSVD, 2 x AB, [address] Judge: LMP 08/21/21 11yo / regular SH: no tob, no EtOH FH: HTN, DM Medications: Meds: Current Medications Medications (Trade) Dose Ordered Sig/Cristy Route PRN Reason Start Time Stop Time Status Last Admin Dose Admin Doxycycline Hyclate (Vibra-Tab) 200 mg 1X ONCE PO 11/23/21 08:45 11/23/21 08:46 DC 11/23/21 09:20 Famotidine (Pepcid Vial) 20 mg 1X ONCE IVP 11/23/21 09:30 11/23/21 09:31 DC 11/23/21 09:35 Allergies: Coded Allergies: No Known Drug Allergies (Unverified , 11/23/21) Physical Exam: Vital Signs: Vital Signs Date Time Temp Pulse Resp B/P (MAP) Pulse Ox O2 Delivery O2 Flow Rate FiO2 11/23/21 09:06 97.8 68 20 100 97.8 11/23/21 08:55 136/65 Room Air PE: GENERAL: No apparent distress. Alert and oriented. HEENT: Head normocephalic, atraumatic. NECK: Supple LUNGS: Clear to auscultation. HEART: RRR, S1, S2 present, pulses intact ABDOMEN: Soft, positive bowel sounds. EXTREMITIES: No cyanosis or edema. NEUROLOGIC: Normal speech, normal tone PSYCHIATRIC: Normal affect, normal mood. SKIN: No ulceration. Labs: Laboratory Tests Test 11/23/21 09:15 White Blood Count 5.9 x10^3/uL (4.0-11.0) Red Blood Count 4.01 x10^6/uL (3.50-5.40) Hemoglobin 10.9 g/dL (12.0-15.5) L Hematocrit 34.6 % (36.0-47.0) L Mean Corpuscular Volume 86 fL (79-100) Mean Corpuscular Hemoglobin 27 pg (25-35) Mean Corpuscular Hemoglobin Concent 32 g/dL (31-37) Red Cell Distribution Width 13.8 % (11.5-14.5) Platelet Count 325 x10^3/uL (140-400) Neutrophils (%) (Auto) 61 % (31-73) Lymphocytes (%) (Auto) 32 % (24-48) Monocytes (%) (Auto) 5 % (0-9) Eosinophils (%) (Auto) 1 % (0-3) Basophils (%) (Auto) 1 % (0-3) Neutrophils # (Auto) 3.6 x10^3/uL (1.8-7.7) Lymphocytes # (Auto) 1.9 x10^3/uL (1.0-4.8) Monocytes # (Auto) 0.3 x10^3/uL (0.0-1.1) Eosinophils # (Auto) 0.1 x10^3/uL (0.0-0.7) Basophils # (Auto) 0.1 x10^3/uL (0.0-0.2) Laboratory Tests 11/23/21 09:15 Laboratory Tests 11/23/21 09:15 Assessment & Plan: A/P 36y with 9.4wk AB 1.) Missed AB - scheduled for 11/22/21 at 0800 2.) AMA 3.) Possible cHTN 4.) H/o ectopic DIEGO FUNK MD Nov 23, 2021 10:09
[2021-11-23] MEDS ORDERED: PROPOFOL 10 MG/ML (20ML) VIAL. IV ONE (10:37)
[2021-11-23] MEDS ORDERED: ONDANSETRON PF 4 MG/2 ML VIAL. ONE (10:37)
[2021-11-23] MEDS ORDERED: DEXAMETHASONE SOD PHOS 4 MG/ML VIAL ONE (10:37)
[2021-11-23] MEDS ORDERED: LIDOCAINE 1% PF 5 ML VIAL. ONE (10:38)
[2021-11-23] MEDS ORDERED: fentaNYL PF VIAL 100 MCG/2 ML VIAL ONE ×2 (10:38→11:17)
[2021-11-23] MEDS ORDERED: ePHEDrine PF IN SALINE 50 MG/10 ML SYRINGE. IV ONE (10:44)
--- NOTE | 2021-11-23 10:54 | PDOC4 ---
OPERATIVE NOTE: PreOp Dx: 1.) 9wk AB, 2.) AMA, 3.) possible cHTN PostOp Dx: same Procedure: Suction D&C Surgeon: Drew Funk Anesthesia: LMA EBL: 700 cc Fluids: 1500 cc UOP: 30 cc Findings: POC Complications: None Pathology: POC DIEGO FUNK MD Nov 23, 2021 10:54
[2021-11-23] MEDS ORDERED: OXYC1TAB15 PO ×2 (10:59→11:02)
[2021-11-23] MEDS ORDERED: IBUP-1060 PO (11:02)
--- NOTE | 2021-11-23 11:11 | OP ---
DATE OF SURGERY: 11/23/2021 PREOPERATIVE DIAGNOSES: 1. Nine week . 2. Advanced maternal age. 3. Possible chronic hypertension. POSTOPERATIVE DIAGNOSES: 1. Nine week . 2. Advanced maternal age. 3. Possible chronic hypertension. PROCEDURE: Suction D and C. SURGEON: Ventura Aguirre MD ANESTHESIA: LMA. ESTIMATED BLOOD LOSS: 700 mL. FLUIDS: 1500 mL. URINE OUTPUT: 30 mL. FINDINGS: Products of conception. COMPLICATIONS: None. PATHOLOGY: Products of conception. DESCRIPTION OF PROCEDURE: The patient was taken to the operating room where LMA was placed without difficulty. The patient was prepped and draped in normal sterile fashion. Speculum was placed to visualize the anterior lip of the cervix. The anterior lip of cervix was then grasped with a single tooth tenaculum. The cervix was dilated to allow for 11 mm curved curette to be placed. At that point, the curette was advanced to the fundus and suction was activated. The curette was rotated until all products of conception were cleared. This occurred with 4-6 passes. At that point, sharp curetting was performed until gritty texture was felt in all 4 quadrants. Additional pass of the suction curette was then performed with minimal bleeding and tissue returned. At that point, the procedure was terminated. Tenaculum was removed with minimal bleeding at the tenaculum site. Good hemostasis was noted. At that point, the patient was taken to recovery room in stable condition, 200 mg of doxycycline were given prior to the procedure. ALEXANDR DR: Priyanka TID: [id number]
[2021-11-23] MEDS ORDERED: oxyCODONE/APAP 5/325 1 TAB TABLET PO ONE (11:15)
[2021-11-23] MEDS: fentaNYL PF VIAL 100 MCG/2 ML VIAL IVP PRN ×2 (11:19→11:34)
[2021-11-23 11:52] VITALS: BP 124/59
== END 2021-11-23 12:25 | disposition home or self-care (01) ==
LOC: SURG 08:37
PROVIDERS: ATTEND Obstetrics & Gynecology
DX: O02.1 Missed abortion (principal); F32.9 Major depressive disorder, single episode, unspecified; Z3A.09 9 weeks gestation of pregnancy; Z79.899 Other long term (current) drug therapy; Z98.890 Other specified postprocedural states; Z82.49 Family history of ischemic heart disease and other diseases of the circulatory system; Z83.3 Family history of diabetes mellitus
CPT/HCPCS: 36415; 59820; 85025; 86850; 86900; 86901; 88305; A4930; J1100; J2405; J2590; J2704; J3010; J3490